=== PATIENT | male | born 1970 | race Caucasian/White ===

== ENCOUNTER → 2019-04-16 | Outpatient (CLI) | payer OTHER ==
[~2019-04-16] MED LIST: ACYC-50 PO; ACYC15OI TP; ALPR-429 PO; CLIN300C99 PO; PER PO; PHEN100 PO; PHEN100C82 PO; SERT-1 PO; SERT-173 PO; VALA500T63 PO
[2019-04-16 10:07] LABS: LDL CHOLESTEROL 155 mg/dl
[2019-04-16 10:48] LABS: PLATELET COUNT, AUTOMATED 199 K/uL (150-450)
== END ==
LOC: LAB 09:15
PROVIDERS: ATTEND Nurse Practitioner Primary Care
DX: G40.909 Epilepsy, unspecified, not intractable, without status epilepticus (principal)
CPT/HCPCS: 36415; 80185; 82040; 82247; 82310; 82374; 82435; 82465; 82565; 82746; 82947; 83718; 84075; 84132; 84155; 84295; 84450; 84460; 84478; 84520; 85025